=== PATIENT | female | born 1935 | race Caucasian/White ===

== ENCOUNTER → 2023-11-03 08:14 | Outpatient (CLI) | payer OTHER, SELFPAY ==
[2023-11-03 10:00] LABS: Thyroid Stimulating Hormone 2.42 uIU/mL (0.47-4.68)
== END ==
PROVIDERS: Family Provider Internal Medicine; PCP Family Medicine; Referring Provider Family Medicine; Visit Provider Family Medicine
DX: E03.9 Hypothyroidism, unspecified (principal)
CPT/HCPCS: 36415; 84443

== ENCOUNTER → 2023-11-21 09:58 | Outpatient (CLI) | payer OTHER, SELFPAY ==
[2023-11-21 11:25] LABS: Thyroid Stimulating Hormone 1.23 uIU/mL (0.47-4.68)
== END ==
PROVIDERS: Family Provider Internal Medicine; PCP Family Medicine; Referring Provider Family Medicine; Visit Provider Family Medicine
DX: E03.9 Hypothyroidism, unspecified (principal)
CPT/HCPCS: 36415; 84443